=== PATIENT | male | born 1950 | race Asian ===

== ENCOUNTER → 2021-10-02 | Outpatient (CLI) | payer OTHER ==
[2021-10-02 08:15] LABS: BASOPHILS % (AUTO) 0.6 % (0.0-2.0); EOSINOPHILS % (AUTO) 4.2 % (1.0-6.0); HEMOGLOBIN 13.4 g/dL (13.5-17.5); LYMPHOCYTES # (AUTO) 1.4 K/uL (1.0-4.8); LYMPHOCYTES % (AUTO) 24.8 % (22.0-44.0); MEAN CORPUSCULAR HEMOGLOBIN 31.5 pg (26.0-34.0); MEAN CORPUSCULAR HGB CONC 34.3 G/dL (31.0-37.0); MEAN CORPUSCULAR VOLUME 92 fL (80-100); MONOCYTES # (AUTO) 0.5 K/uL (0.1-1.0); MONOCYTES % (AUTO) 8.8 % (2.0-9.0); NEUTROPHILS # (AUTO) 3.5 K/uL (1.8-7.7); NEUTROPHILS % (AUTO) 61.6 % (40.0-70.0); PLATELET COUNT (AUTO) 176 K/uL (150-450); RED BLOOD CELL COUNT(AUTO) 4.23 MIL/uL (4.50-5.90); RED CELL DISTRIBUTION WIDTH 13.8 % (11.5-14.5)
[2021-10-02 08:45] LABS: ALBUMIN 3.3 g/dL (3.4-5.0); BILIRUBIN,TOTAL 0.6 mg/dL (0.1-1.0); CALCIUM, TOTAL 9.6 mg/dL (8.8-10.5); CREATININE 1.47 mg/dL (0.60-1.30); FREE T4 (FREE THYROXINE) 1.31 ng/dL (0.76-1.46); MAGNESIUM 1.9 mg/dL (1.80-2.40); POTASSIUM 4.3 mmol/L (3.5-5.1); THYROID STIMULATING HORMONE 0.33 uIU/mL (0.36-3.74); TOTAL PROTEIN, SERUM 7.6 g/dL (6.4-8.2)
[2021-10-02 08:57] LABS: HEMOGLOBIN A1C 6.2 % (3.8-5.6)
== END | disposition home or self-care (01) ==
LOC: LABPV 07:27
PROVIDERS: ATTEND Internal Medicine
DX: D56.5 Hemoglobin E-beta thalassemia (principal); E11.8 Type 2 diabetes mellitus with unspecified complications; I11.0 Hypertensive heart disease with heart failure; I50.9 Heart failure, unspecified; E78.00 Pure hypercholesterolemia, unspecified
CPT/HCPCS: 80053; 80061; 82306; 83036; 83735; 83880; 84439; 84443; 84480; 85025

== ENCOUNTER → 2022-02-12 | Outpatient (CLI) | payer OTHER ==
[2022-02-12 08:09] LABS: BASOPHILS % (AUTO) 0.7 % (0.0-2.0); EOSINOPHILS % (AUTO) 5.2 % (1.0-6.0); HEMATOCRIT 37.2 % (41-53); HEMOGLOBIN 12.7 g/dL (13.5-17.5); LYMPHOCYTES % (AUTO) 28.3 % (22.0-44.0); MEAN CORPUSCULAR HEMOGLOBIN 31.5 pg (26.0-34.0); MEAN CORPUSCULAR HGB CONC 34.1 G/dL (31.0-37.0); MEAN CORPUSCULAR VOLUME 92 fL (80-100); MONOCYTES # (AUTO) 0.7 K/uL (0.1-1.0); MONOCYTES % (AUTO) 9.7 % (2.0-9.0); NEUTROPHILS # (AUTO) 3.9 K/uL (1.8-7.7); NEUTROPHILS % (AUTO) 56.1 % (40.0-70.0); PLATELET COUNT (AUTO) 184 K/uL (150-450); RED BLOOD CELL COUNT(AUTO) 4.03 MIL/uL (4.50-5.90); RED CELL DISTRIBUTION WIDTH 14.2 % (11.5-14.5)
[2022-02-12 08:16] LABS: APPEARANCE,URINE CLEAR (CLEAR); BILIRUBIN,URINE NEGATIVE (NEGATIVE); GLUCOSE, URINE (UA) NEGATIVE (NEGATIVE); KETONES,URINE NEGATIVE (NEGATIVE); LEUKOCYTE ESTERASE ,URINE NEGATIVE (NEGATIVE); NITRATE,URINE NEGATIVE (NEGATIVE); OCCULT BLOOD,URINE SMALL (NEGATIVE); PROTEIN,URINE 100-200,SEE CONFIRM mg/dL (NEGATIVE); SPECIFIC GRAVITIY, URINE 1.009 (1.003-1.030); UROBILINOGEN,URINE <=1.0 mg/dL (<=1.0)
[2022-02-12 08:31] LABS: ALBUMIN 3.5 g/dL (3.4-5.0); BILIRUBIN,TOTAL 0.7 mg/dL (0.1-1.0); CALCIUM, TOTAL 9.8 mg/dL (8.8-10.5); CHOL/HDL RATIO 2.5 (4.2-7.3); CREATININE 1.54 mg/dL (0.60-1.30); POTASSIUM 4.3 mmol/L (3.5-5.1); THYROID STIMULATING HORMONE 0.42 uIU/mL (0.36-3.74); TOTAL PROTEIN, SERUM 7.6 g/dL (6.4-8.2)
[2022-02-12 08:46] LABS: HEMOGLOBIN A1C 6.1 % (3.8-5.6)
[2022-02-12 08:55] LABS: SULFOSALICYLIC ACID,URINE 2+ (Negative)
[2022-02-12 08:56] LABS: BACTERIA,URINE None Seen /HPF (None Seen); SQUAMOUS EPITHELIAL CELL,UR Few /LPF (None Seen); WBC,URINE None Seen /HPF (0-5)
[2022-02-12 09:18] LABS: PROSTATE SPECIFIC ANTIGEN 17.55 ng/mL (0.00-4.00)
== END | disposition home or self-care (01) ==
LOC: MSR 07:14
PROVIDERS: ATTEND Internal Medicine
DX: J44.9 Chronic obstructive pulmonary disease, unspecified (principal); Q25.46 Tortuous aortic arch; R07.9 Chest pain, unspecified; R00.2 Palpitations; R97.20 Elevated prostate specific antigen [PSA]; Z79.899 Other long term (current) drug therapy
CPT/HCPCS: 71046; 80053; 80061; 81001; 81002; 82306; 83036; 83525; 84153; 84154; 84443; 85025; 36415-L1; 36415-TC

== ENCOUNTER → 2022-02-19 | Outpatient (CLI) | payer OTHER ==
[2022-02-19 07:32] LABS: BASOPHILS % (AUTO) 0.6 % (0.0-2.0); EOSINOPHILS % (AUTO) 4.4 % (1.0-6.0); HEMATOCRIT 35.6 % (41-53); HEMOGLOBIN 12.2 g/dL (13.5-17.5); LYMPHOCYTES # (AUTO) 1.7 K/uL (1.0-4.8); MEAN CORPUSCULAR HEMOGLOBIN 31.6 pg (26.0-34.0); MEAN CORPUSCULAR HGB CONC 34.3 G/dL (31.0-37.0); MEAN CORPUSCULAR VOLUME 92 fL (80-100); MONOCYTES # (AUTO) 0.6 K/uL (0.1-1.0); MONOCYTES % (AUTO) 9.7 % (2.0-9.0); NEUTROPHILS # (AUTO) 3.7 K/uL (1.8-7.7); NEUTROPHILS % (AUTO) 58.3 % (40.0-70.0); PLATELET COUNT (AUTO) 183 K/uL (150-450); RED BLOOD CELL COUNT(AUTO) 3.87 MIL/uL (4.50-5.90); RETICULOCYTE % (AUTO) 1.3 % (0.5-2.3)
[2022-02-19 08:11] LABS: % IRON SATURATION 34.4 % (30-44)
[2022-02-19 08:53] LABS: VITAMIN B12 LEVEL 832 pg/mL (211-911)
[2022-02-19 09:08] LABS: FOLATE SERUM > 24.0 ng/mL (5.4-)
== END | disposition home or self-care (01) ==
LOC: LABMN 07:05
PROVIDERS: ATTEND Internal Medicine
DX: D64.9 Anemia, unspecified (principal)
CPT/HCPCS: 82274; 82607; 82728; 82746; 83540; 83550; 85025; 85045

== ENCOUNTER → 2022-09-17 | Outpatient (CLI) | payer OTHER ==
[2022-09-17 07:39] LABS: BASOPHILS % (AUTO) 0.6 % (0.0-2.0); EOSINOPHILS % (AUTO) 3.2 % (1.0-6.0); HEMATOCRIT 37.9 % (41-53); HEMOGLOBIN 12.5 g/dL (13.5-17.5); LYMPHOCYTES # (AUTO) 1.5 K/uL (1.0-4.8); LYMPHOCYTES % (AUTO) 19.7 % (22.0-44.0); MEAN CORPUSCULAR HEMOGLOBIN 31.9 pg (26.0-34.0); MEAN CORPUSCULAR HGB CONC 33.1 G/dL (31.0-37.0); MEAN CORPUSCULAR VOLUME 96 fL (80-100); MONOCYTES # (AUTO) 0.7 K/uL (0.1-1.0); MONOCYTES % (AUTO) 9.2 % (2.0-9.0); NEUTROPHILS % (AUTO) 67.3 % (40.0-70.0); PLATELET COUNT (AUTO) 196 K/uL (150-450); RED BLOOD CELL COUNT(AUTO) 3.93 MIL/uL (4.50-5.90); RED CELL DISTRIBUTION WIDTH 14.8 % (11.5-14.5)
[2022-09-17 07:50] LABS: HEMOGLOBIN A1C 6.4 % (3.8-5.6)
[2022-09-17 07:56] LABS: ALBUMIN 2.8 g/dL (3.4-5.0); BILIRUBIN,TOTAL 0.5 mg/dL (0.1-1.0); CALCIUM, TOTAL 9.2 mg/dL (8.8-10.5); CHOL/HDL RATIO 3.4 (4.2-7.3); CREATININE 1.77 mg/dL (0.60-1.30); POTASSIUM 4.1 mmol/L (3.5-5.1); THYROID STIMULATING HORMONE 0.61 uIU/mL (0.36-3.74); TOTAL PROTEIN, SERUM 7.1 g/dL (6.4-8.2)
== END | disposition home or self-care (01) ==
LOC: LABMN 07:03
PROVIDERS: ATTEND Internal Medicine
DX: I10 Essential (primary) hypertension (principal); J44.9 Chronic obstructive pulmonary disease, unspecified; D64.9 Anemia, unspecified; E66.9 Obesity, unspecified; E55.9 Vitamin D deficiency, unspecified; Z79.899 Other long term (current) drug therapy
CPT/HCPCS: 80053; 80061; 82306; 83036; 84154; 84443; 85025

== ENCOUNTER → 2022-10-09 | Outpatient (CLI) | payer OTHER | END | disposition home or self-care (01) | LOC: RADMN 08:13 | PROVIDERS: ATTEND Internal Medicine | DX: I51.7 Cardiomegaly (principal); R06.02 Shortness of breath; Q25.46 Tortuous aortic arch; M47.814 Spondylosis without myelopathy or radiculopathy, thoracic region | CPT/HCPCS: 71046 ==

== ENCOUNTER → 2022-11-12 | Outpatient (CLI) | payer OTHER ==
[~2022-11-12] VITALS: Ht 167.6 cm; Wt 94.5 kg
[~2022-11-12] MED LIST: ATOR20TA86 PO; CHOL25TA4 PO; LOSA-382 PO; METO50 PO
[2022-11-12 09:35] VITALS: BP 115/80
== END | disposition home or self-care (01) ==
LOC: SRCNTR 08:58
PROVIDERS: ATTEND Internal Medicine Pulmonary Disease
DX: I10 Essential (primary) hypertension (principal); E66.9 Obesity, unspecified
CPT/HCPCS: G0463; Z7500

== ENCOUNTER 2022-12-09 16:08 | Emergency (ER) | payer OTHER ==
[~2022-12-09] VITALS: Ht 170.2 cm; Wt 95.5 kg
[2022-12-09] MEDS ORDERED: DOXY-354 PO (16:21)
[2022-12-09] MEDS ORDERED: CEPH-558 PO ×2 (16:21→23:19)
[2022-12-09] MEDS ORDERED: METO-391 PO (16:24)
[2022-12-09 20:19] LABS: BASOPHILS % (AUTO) 0.5 % (0.0-2.0); EOSINOPHILS % (AUTO) 3.4 % (1.0-6.0); HEMATOCRIT 34.7 % (41-53); HEMOGLOBIN 11.6 g/dL (13.5-17.5); LYMPHOCYTES # (AUTO) 1.6 K/uL (1.0-4.8); MEAN CORPUSCULAR HEMOGLOBIN 31.3 pg (26.0-34.0); MEAN CORPUSCULAR HGB CONC 33.6 G/dL (31.0-37.0); MEAN CORPUSCULAR VOLUME 93 fL (80-100); MONOCYTES # (AUTO) 0.8 K/uL (0.1-1.0); MONOCYTES % (AUTO) 12.2 % (2.0-9.0); NEUTROPHILS # (AUTO) 3.8 K/uL (1.8-7.7); NEUTROPHILS % (AUTO) 58.9 % (40.0-70.0); PLATELET COUNT (AUTO) 202 K/uL (150-450); RED BLOOD CELL COUNT(AUTO) 3.72 MIL/uL (4.50-5.90); RED CELL DISTRIBUTION WIDTH 14.1 % (11.5-14.5)
[2022-12-09 20:27] LABS: CALCIUM, TOTAL 9.6 mg/dL (8.8-10.5); CREATININE 2.18 mg/dL (0.60-1.30); POTASSIUM 4.6 mmol/L (3.5-5.1)
[2022-12-10 03:01] VITALS: BP 144/82
== END 2022-12-10 03:03 | disposition home or self-care (01) ==
LOC: EMS 16:09
DX: M79.89 Other specified soft tissue disorders (principal); L03.116 Cellulitis of left lower limb; J44.9 Chronic obstructive pulmonary disease, unspecified; I10 Essential (primary) hypertension; Z98.890 Other specified postprocedural states
CPT/HCPCS: 80048; 83880; 85025; 93971; 99285

== ENCOUNTER → 2022-12-17 | Outpatient (CLI) | payer OTHER ==
[~2022-12-17] MED LIST changes: +CEPH-558 PO; +DOXY-354 PO; +METO-391 PO; -METO50 PO
[2022-12-17 08:16] LABS: APPEARANCE,URINE CLEAR (CLEAR); BILIRUBIN,URINE NEGATIVE (NEGATIVE); GLUCOSE, URINE (UA) NEGATIVE (NEGATIVE); KETONES,URINE NEGATIVE (NEGATIVE); LEUKOCYTE ESTERASE ,URINE NEGATIVE (NEGATIVE); NITRATE,URINE NEGATIVE (NEGATIVE); OCCULT BLOOD,URINE MODERATE (NEGATIVE); PROTEIN,URINE 300-600,SEE CONFIRM mg/dL (NEGATIVE); UROBILINOGEN,URINE <=1.0 mg/dL (<=1.0)
[2022-12-17 08:18] LABS: CREATININE,URINE RANDOM 72.4 mg/dL (30.0-125.0); PROTEIN,URINE RANDOM 243 mg/dL (0-11.9)
[2022-12-17 08:41] LABS: CALCIUM, TOTAL 9.4 mg/dL (8.8-10.5); CHOL/HDL RATIO 2.4 (4.2-7.3); CREATININE 1.95 mg/dL (0.60-1.30)
[2022-12-17 09:03] LABS: PROSTATE SPECIFIC ANTIGEN 20.94 ng/mL (0.00-4.00)
[2022-12-17 09:04] LABS: SULFOSALICYLIC ACID,URINE 3+ (Negative)
[2022-12-17 09:05] LABS: BACTERIA,URINE None Seen /HPF (None Seen); WBC,URINE None Seen /HPF (0-5)
== END | disposition home or self-care (01) ==
LOC: LABMN 07:33
PROVIDERS: ATTEND Internal Medicine Nephrology
DX: C61 Malignant neoplasm of prostate (principal); E78.5 Hyperlipidemia, unspecified; R80.9 Proteinuria, unspecified; N18.30 Chronic kidney disease, stage 3 unspecified; E55.9 Vitamin D deficiency, unspecified
CPT/HCPCS: 80048; 80061; 81001; 81002; 82306; 82570; 84153; 84156

== ENCOUNTER 2023-01-20 07:24 | Emergency (ER) | payer OTHER ==
[~2023-01-20] VITALS: Ht 167.6 cm; Wt 90.9 kg
[~2023-01-20 07:24] MED LIST changes: -SULF-261 PO
[2023-01-20 07:26] VITALS: BP 129/72
[2023-01-20] MEDS ORDERED: SULFAMETHOX/TRIMETH DS 800-160 MG/TABLET PO ONE (08:30)
[2023-01-20] MEDS ORDERED: CEPHALEXIN MONOHYDRATE 500 MG CAPSULE PO ONE (08:30)
[2023-01-20] MEDS ORDERED: CEPH-558 PO (08:32)
[2023-01-20] MEDS ORDERED: SULF-261 PO (08:32)
== END 2023-01-20 08:41 | disposition home or self-care (01) ==
LOC: EMS 07:27
DX: L03.90 Cellulitis, unspecified (principal); I10 Essential (primary) hypertension; J44.9 Chronic obstructive pulmonary disease, unspecified
CPT/HCPCS: 99281; Z7502

== ENCOUNTER → 2023-01-20 | Outpatient (CLI) | payer OTHER ==
[~2023-01-20] MED LIST changes: +ATOR20TA PO; -ATOR20TA86 PO; +SULF-261 PO
[2023-01-20 07:24] LABS: EOSINOPHILS % (AUTO) 4.7 % (1.0-6.0); HEMATOCRIT 31.8 % (41-53); HEMOGLOBIN 10.6 g/dL (13.5-17.5); LYMPHOCYTES # (AUTO) 1.8 K/uL (1.0-4.8); LYMPHOCYTES % (AUTO) 32.6 % (22.0-44.0); MEAN CORPUSCULAR HEMOGLOBIN 30.4 pg (26.0-34.0); MEAN CORPUSCULAR HGB CONC 33.3 G/dL (31.0-37.0); MEAN CORPUSCULAR VOLUME 91 fL (80-100); MONOCYTES # (AUTO) 0.5 K/uL (0.1-1.0); MONOCYTES % (AUTO) 9.7 % (2.0-9.0); NEUTROPHILS # (AUTO) 2.9 K/uL (1.8-7.7); PLATELET COUNT (AUTO) 191 K/uL (150-450); RED BLOOD CELL COUNT(AUTO) 3.48 MIL/uL (4.50-5.90); RED CELL DISTRIBUTION WIDTH 14.7 % (11.5-14.5)
[2023-01-20 07:43] LABS: ALBUMIN 3.1 g/dL (3.4-5.0); BILIRUBIN,TOTAL 0.3 mg/dL (0.1-1.0); CALCIUM, TOTAL 8.9 mg/dL (8.8-10.5); CHOL/HDL RATIO 2.6 (4.2-7.3); CREATININE 1.96 mg/dL (0.60-1.30); HEMOGLOBIN A1C 6.4 % (3.8-5.6); POTASSIUM 4.3 mmol/L (3.5-5.1); THYROID STIMULATING HORMONE 0.52 uIU/mL (0.36-3.74); TOTAL PROTEIN, SERUM 7.3 g/dL (6.4-8.2)
[2023-01-20 09:43] LABS: VITAMIN D,TOTAL (25-0H) 26 ng/mL (30-100)
[2023-01-20 09:48] LABS: FOLATE SERUM 18.7 ng/mL (5.4-); VITAMIN B12 LEVEL > 2000 pg/mL (211-911)
== END | disposition home or self-care (01) ==
LOC: LABMN 06:48
PROVIDERS: ATTEND Internal Medicine Geriatric Medicine
DX: Z00.00 Encounter for general adult medical examination without abnormal findings (principal)
CPT/HCPCS: 80053; 80061; 82043; 82306; 82570; 82607; 82746; 83036; 84443; 85025

== ENCOUNTER → 2023-03-26 | Outpatient (CLI) | payer OTHER ==
[~2023-03-26] MED LIST changes: -DOXY-354 PO; +SULF-261 PO
[2023-03-26 10:21] LABS: CALCIUM, TOTAL 8.9 mg/dL (8.8-10.5); CREATININE 2.07 mg/dL (0.60-1.30); POTASSIUM 4.1 mmol/L (3.5-5.1)
[2023-03-26 10:35] LABS: CREATININE,URINE 34.1 mg/dL (30.0-125.0)
[2023-03-26 10:37] LABS: CREATININE,SERUM FOR CRCL 2.07 mg/dL (0.60-1.30)
[2023-03-27 07:07] LABS: IGM (IMMUNOFIXATION) 51 mg/dL (20-172)
[2023-03-30 18:11] LABS: GLOMERULAR BASE MEMBRANE ABS <0.2 units (0.0-0.9)
[2023-03-31 05:17] LABS: ALPHA-1 URINE 3.7 %; ALPHA-2 URINE 3.1 %
== END | disposition home or self-care (01) ==
LOC: LABMN 08:42
PROVIDERS: ATTEND Internal Medicine Nephrology
DX: N18.30 Chronic kidney disease, stage 3 unspecified (principal); R80.9 Proteinuria, unspecified
CPT/HCPCS: 80048; 81050; 82575; 82784; 83520; 84156; 84166; 84300; 86038; 86160; 86256; 86334; 86335

== ENCOUNTER → 2023-06-05 | Outpatient (CLI) | payer OTHER ==
[2023-06-05 08:08] LABS: BASOPHILS % (AUTO) 0.7 % (0.0-2.0); EOSINOPHILS % (AUTO) 4.1 % (1.0-6.0); HEMATOCRIT 32.1 % (41-53); HEMOGLOBIN 10.8 g/dL (13.5-17.5); LYMPHOCYTES # (AUTO) 1.3 K/uL (1.0-4.8); LYMPHOCYTES % (AUTO) 25.1 % (22.0-44.0); MEAN CORPUSCULAR HEMOGLOBIN 31.7 pg (26.0-34.0); MEAN CORPUSCULAR HGB CONC 33.6 G/dL (31.0-37.0); MEAN CORPUSCULAR VOLUME 94 fL (80-100); MONOCYTES # (AUTO) 0.4 K/uL (0.1-1.0); MONOCYTES % (AUTO) 8.2 % (2.0-9.0); NEUTROPHILS # (AUTO) 3.3 K/uL (1.8-7.7); NEUTROPHILS % (AUTO) 61.9 % (40.0-70.0); PLATELET COUNT (AUTO) 149 K/uL (150-450); RED BLOOD CELL COUNT(AUTO) 3.41 MIL/uL (4.50-5.90); RED CELL DISTRIBUTION WIDTH 14.2 % (11.5-14.5); WHITE BLOOD COUNT (AUTO) 5.3 K/uL (4.5-11.0)
[2023-06-05 08:13] LABS: HEMOGLOBIN A1C 5.7 % (3.8-5.6)
[2023-06-05 08:38] LABS: ALBUMIN 3.4 g/dL (3.4-5.0); BILIRUBIN,TOTAL 0.5 mg/dL (0.1-1.0); CALCIUM, TOTAL 9.2 mg/dL (8.8-10.5); CREATININE 1.9 mg/dL (0.60-1.30); FREE THYROXINE INDEX 3.2 (1.4-4.5); PHOSPHORUS 4.6 mg/dL (2.5-4.9); POTASSIUM 4.4 mmol/L (3.5-5.1); T4 (THYROXINE) 9.5 mcg/dL (4.7-13.3); THYROID STIMULATING HORMONE 0.65 uIU/mL (0.36-3.74); TOTAL PROTEIN, SERUM 7.2 g/dL (6.4-8.2)
[2023-06-06 06:06] LABS: PARATHYROID HORMONE INTACT 44 pg/mL (15-65)
== END | disposition home or self-care (01) ==
LOC: LABMN 07:00
PROVIDERS: ATTEND Internal Medicine Geriatric Medicine
DX: I11.0 Hypertensive heart disease with heart failure (principal); I50.9 Heart failure, unspecified; E11.8 Type 2 diabetes mellitus with unspecified complications; E78.00 Pure hypercholesterolemia, unspecified; E55.9 Vitamin D deficiency, unspecified; D56.5 Hemoglobin E-beta thalassemia
CPT/HCPCS: 80053; 80061; 82306; 82570; 83036; 83970; 84100; 84436; 84443; 84479; 85025

== ENCOUNTER → 2023-08-04 | Outpatient (CLI) | payer OTHER ==
[2023-08-04 07:53] LABS: APPEARANCE,URINE CLEAR (CLEAR); BILIRUBIN,URINE NEGATIVE (NEGATIVE); COLOR,URINE COLORLESS (YELLOW); GLUCOSE, URINE (UA) NEGATIVE (NEGATIVE); KETONES,URINE NEGATIVE (NEGATIVE); LEUKOCYTE ESTERASE ,URINE NEGATIVE (NEGATIVE); NITRATE,URINE NEGATIVE (NEGATIVE); OCCULT BLOOD,URINE SMALL (NEGATIVE); PROTEIN,URINE 100-200,SEE CONFIRM mg/dL (NEGATIVE); UROBILINOGEN,URINE <=1.0 mg/dL (<=1.0)
[2023-08-04 08:09] LABS: SULFOSALICYLIC ACID,URINE 2+ (Negative)
[2023-08-04 08:10] LABS: BACTERIA,URINE None Seen /HPF (None Seen); RBC,URINE 0-2 /HPF (0-2); WBC,URINE 0-2 /HPF (0-5)
== END | disposition home or self-care (01) ==
LOC: LABMN 07:14
PROVIDERS: ATTEND Urology
DX: R97.20 Elevated prostate specific antigen [PSA] (principal); R31.21 Asymptomatic microscopic hematuria
CPT/HCPCS: 81001; 81002; 84153

== ENCOUNTER → 2023-09-18 | Outpatient (CLI) | payer OTHER ==
[2023-09-18 07:54] LABS: APPEARANCE,URINE CLEAR (CLEAR); BILIRUBIN,URINE NEGATIVE (NEGATIVE); COLOR,URINE COLORLESS (YELLOW); GLUCOSE, URINE (UA) NEGATIVE (NEGATIVE); KETONES,URINE NEGATIVE (NEGATIVE); LEUKOCYTE ESTERASE ,URINE NEGATIVE (NEGATIVE); NITRATE,URINE NEGATIVE (NEGATIVE); OCCULT BLOOD,URINE MODERATE (NEGATIVE); PROTEIN,URINE 100-200,SEE CONFIRM mg/dL (NEGATIVE); SPECIFIC GRAVITIY, URINE 1.011 (1.003-1.030); UROBILINOGEN,URINE <=1.0 mg/dL (<=1.0)
[2023-09-18 08:16] LABS: BACTERIA,URINE None Seen /HPF (None Seen); RBC,URINE 0-2 /HPF (0-2); SQUAMOUS EPITHELIAL CELL,UR Few /LPF (None Seen); SULFOSALICYLIC ACID,URINE 1+ (Negative); WBC,URINE None Seen /HPF (0-5)
== END | disposition home or self-care (01) ==
LOC: LABMN 07:10
PROVIDERS: ATTEND Urology
DX: R97.20 Elevated prostate specific antigen [PSA] (principal); R31.21 Asymptomatic microscopic hematuria
CPT/HCPCS: 81001; 81002; 84153

== ENCOUNTER → 2023-12-16 | Outpatient (CLI) | payer OTHER ==
[2023-12-17 03:06] LABS: MUMPS VIRUS IGG ANTIBODY 15.1 AU/mL (Immune >10.9); RUBELLA AB IGG-REFLAB >33.00 index (Immune >0.99)
[2023-12-17 07:07] LABS: RUBEOLA (MEASLES) IGG >300.0 AU/mL (Immune >16.4); VARICELLA ZOSTER IGG AB TITER 1526 index (Immune >165)
== END | disposition home or self-care (01) ==
LOC: LABMN 10:19
PROVIDERS: ATTEND Internal Medicine
DX: Z02.1 Encounter for pre-employment examination (principal)
CPT/HCPCS: 86706; 86735; 86762; 86765; 86787

== ENCOUNTER 2023-12-18 10:40 | Emergency (ER) | payer OTHER ==
[~2023-12-18] VITALS: Ht 162.6 cm; Wt 75.0 kg
[2023-12-18 10:48] VITALS: TEMP 98
[2023-12-18] MEDS ORDERED: LOSA-381 PO (10:54)
[2023-12-18] MEDS ORDERED: CHOL200074 PO (10:54)
[2023-12-18] MEDS ORDERED: METO-416 PO (10:54)
[2023-12-18] MEDS ORDERED: ATOR20TA65 PO (10:54)
[2023-12-18 12:27] LABS: BASOPHILS % (AUTO) 0.7 % (0.0-2.0); HEMATOCRIT 32.9 % (41-53); HEMOGLOBIN 11.1 g/dL (13.5-17.5); LYMPHOCYTES # (AUTO) 2.6 K/uL (1.0-4.8); LYMPHOCYTES % (AUTO) 26.8 % (22.0-44.0); MEAN CORPUSCULAR HEMOGLOBIN 32.8 pg (26.0-34.0); MEAN CORPUSCULAR HGB CONC 33.9 G/dL (31.0-37.0); MEAN CORPUSCULAR VOLUME 97 fL (80-100); MONOCYTES # (AUTO) 0.9 K/uL (0.1-1.0); MONOCYTES % (AUTO) 8.8 % (2.0-9.0); NEUTROPHILS # (AUTO) 5.5 K/uL (1.8-7.7); NEUTROPHILS % (AUTO) 56.7 % (40.0-70.0); PLATELET COUNT (AUTO) 172 K/uL (150-450); RED BLOOD CELL COUNT(AUTO) 3.39 MIL/uL (4.50-5.90); RED CELL DISTRIBUTION WIDTH 15.1 % (11.5-14.5); WHITE BLOOD COUNT (AUTO) 9.7 K/uL (4.5-11.0)
[2023-12-18 12:33] LABS: CALCIUM, TOTAL 9.4 mg/dL (8.8-10.5); CREATININE 2.42 mg/dL (0.60-1.30); POTASSIUM 4.7 mmol/L (3.5-5.1)
[2023-12-18 12:38] LABS: ALBUMIN 2.6 g/dL (3.4-5.0); BILIRUBIN,TOTAL 0.3 mg/dL (0.1-1.0); MAGNESIUM 2.1 mg/dL (1.80-2.40); PHOSPHORUS 4.7 mg/dL (2.5-4.9); TOTAL PROTEIN, SERUM 6.7 g/dL (6.4-8.2)
[2023-12-18 12:41] LABS: TROPONIN I-HIGH SENSITIVITY 39 ng/L (<76)
[2023-12-18 13:45] VITALS: BP 146/98; PULSE 48; RESP 18
== END 2023-12-18 13:51 | disposition home or self-care (01) ==
LOC: EMS 10:55
DX: R00.1 Bradycardia, unspecified (principal); I10 Essential (primary) hypertension; J44.9 Chronic obstructive pulmonary disease, unspecified; Z98.890 Other specified postprocedural states
CPT/HCPCS: 80053; 83735; 83880; 84100; 84484; 85025; 93005; 99284

== ENCOUNTER → 2024-02-10 | Outpatient (CLI) | payer OTHER ==
[~2024-02-10] MED LIST changes: -ATOR20TA PO; +ATOR20TA65 PO; -CEPH-558 PO; +CHOL200074 PO; -CHOL25TA4 PO; +LOSA-381 PO; -LOSA-382 PO; -METO-391 PO; +METO-416 PO; -SULF-261 PO
[2024-02-10 07:39] LABS: BASOPHILS % (AUTO) 0.7 % (0.0-2.0); EOSINOPHILS % (AUTO) 4.1 % (1.0-6.0); HEMATOCRIT 32.7 % (41-53); HEMOGLOBIN 10.9 g/dL (13.5-17.5); LYMPHOCYTES % (AUTO) 25.8 % (22.0-44.0); MEAN CORPUSCULAR HEMOGLOBIN 32.9 pg (26.0-34.0); MEAN CORPUSCULAR HGB CONC 33.2 G/dL (31.0-37.0); MEAN CORPUSCULAR VOLUME 99 fL (80-100); MONOCYTES # (AUTO) 0.7 K/uL (0.1-1.0); MONOCYTES % (AUTO) 9.3 % (2.0-9.0); NEUTROPHILS # (AUTO) 4.7 K/uL (1.8-7.7); NEUTROPHILS % (AUTO) 60.1 % (40.0-70.0); PLATELET COUNT (AUTO) 189 K/uL (150-450); RED BLOOD CELL COUNT(AUTO) 3.31 MIL/uL (4.50-5.90); RED CELL DISTRIBUTION WIDTH 14.6 % (11.5-14.5); WHITE BLOOD COUNT (AUTO) 7.8 K/uL (4.5-11.0)
[2024-02-10 08:09] LABS: HEMOGLOBIN A1C 6.1 % (3.8-5.6)
[2024-02-10 08:12] LABS: BILIRUBIN,TOTAL 0.6 mg/dL (0.1-1.0); CALCIUM, TOTAL 9.3 mg/dL (8.8-10.5); CHOL/HDL RATIO 2.4 (4.2-7.3); CREATININE 3.02 mg/dL (0.60-1.30); POTASSIUM 4.4 mmol/L (3.5-5.1); THYROID STIMULATING HORMONE 0.7 uIU/mL (0.36-3.74); TOTAL PROTEIN, SERUM 6.9 g/dL (6.4-8.2)
[2024-02-10 08:56] LABS: PROSTATE SPECIFIC ANTIGEN 20.44 ng/mL (0.00-4.00)
[2024-02-10 11:46] LABS: VITAMIN B12 LEVEL 685 pg/mL (211-911); VITAMIN D,TOTAL (25-0H) 29 ng/mL (30-100)
[2024-02-10 13:40] LABS: FOLATE SERUM > 24.0 ng/mL (5.4-)
[2024-02-11 12:07] LABS: CREATININE, URINE (mALB) 42.1 mg/dL (Not Estab.)
== END | disposition home or self-care (01) ==
LOC: LABMN 07:17
PROVIDERS: ATTEND Internal Medicine Geriatric Medicine
DX: E11.59 Type 2 diabetes mellitus with other circulatory complications (principal); I12.9 Hypertensive chronic kidney disease with stage 1 through stage 4 chronic kidney disease, or unspecified chronic kidney disease; E78.5 Hyperlipidemia, unspecified; R80.9 Proteinuria, unspecified; N40.0 Benign prostatic hyperplasia without lower urinary tract symptoms
CPT/HCPCS: 80053; 80061; 82043; 82306; 82570; 82607; 82746; 83036; 84153; 84443; 85025

== ENCOUNTER → 2024-02-29 | Outpatient (CLI) | payer OTHER | END | disposition home or self-care (01) | LOC: RADPV 07:27 | PROVIDERS: ATTEND Internal Medicine Nephrology | DX: N28.1 Cyst of kidney, acquired (principal); N18.4 Chronic kidney disease, stage 4 (severe); N32.89 Other specified disorders of bladder | CPT/HCPCS: 76770 ==

== ENCOUNTER → 2025-04-07 | Outpatient (CLI) | payer OTHER ==
[~2025-04-07] MED LIST changes: +APIX2.5T PO; +METO25XL PO
== END | disposition home or self-care (01) ==
LOC: RADPV 14:12
PROVIDERS: ATTEND Internal Medicine Nephrology
DX: N28.1 Cyst of kidney, acquired (principal); N18.5 Chronic kidney disease, stage 5
CPT/HCPCS: 76770

== ENCOUNTER 2025-04-08 09:29 | Inpatient (IN) | payer OTHER ==
[~2025-04-08] VITALS: Ht 167.6 cm; Wt 71.2 kg
[~2025-04-08 09:29] MED LIST changes: -APIX2.5T PO; -METO25XL PO
[2025-04-08] MEDS ORDERED: TROPICAMIDE 0.5% OD ONE (10:00)
[2025-04-08 10:22] LABS: PLATELET COUNT (AUTO) 177 K/uL (150-450); RED BLOOD CELL COUNT(AUTO) 2.42 MIL/uL (4.50-5.90); RED CELL DISTRIBUTION WIDTH 14.9 % (11.5-14.5); WHITE BLOOD COUNT (AUTO) 5.9 K/uL (4.5-11.0)
[2025-04-08] MEDS ORDERED: IOHEXOL 350 MG/ML 100 ML VIAL ONE (10:25)
[2025-04-08] MEDS: TROPICAMIDE 1% 2 ML OPHTHALMIC SOLUTION OD ONE (10:35)
[2025-04-08 10:51] LABS: CALCIUM, TOTAL 8.6 mg/dL (8.8-10.5); CREATININE 5.91 mg/dL (0.60-1.30); GLOMERULAR FILTR. RATE CALC 9.0 mL/min (>60); GLUCOSE,RANDOM 96.0 mg/dL (70-110); SODIUM SERUM 142.0 mmol/L (136-145); UREA NITROGEN, BLOOD 83.0 mg/dL (7-18)
[2025-04-08] MEDS: METOPROLOL TARTRATE 5 MG/5 ML VIAL IVP ONE (11:16)
[2025-04-08] MEDS: CLOPIDOGREL BISULFATE 300 MG TABLET PO ONE (11:41)
[2025-04-08] MEDS: ASPIRIN 81 MG CHEWABLE TABLET PO ONE (11:41)
[2025-04-08 11:48] LABS: APPEARANCE,URINE CLEAR (CLEAR); GLUCOSE, URINE (UA) NEGATIVE (NEGATIVE); LEUKOCYTE ESTERASE ,URINE NEGATIVE (NEGATIVE); NITRATE,URINE NEGATIVE (NEGATIVE); OCCULT BLOOD,URINE SMALL (NEGATIVE); SPECIFIC GRAVITIY, URINE 1.009 (1.003-1.030)
[2025-04-08 18:00] VITALS: BP 145/97; PULSE 102; RESP 18; TEMP 98.1; O2SAT 96
[2025-04-08 20:00] VITALS: BP 122/89; PULSE 106; RESP 18; TEMP 97.8; O2SAT 100
[2025-04-09] VITALS: BP 112/94; PULSE 112; RESP 18; TEMP 98.2; O2SAT 98
[2025-04-09 04:00] VITALS: BP 125/86; PULSE 84; RESP 18; TEMP 98.4; O2SAT 100
[2025-04-09 06:45] LABS: PLATELET COUNT (AUTO) 168 K/uL (150-450); RED BLOOD CELL COUNT(AUTO) 2.25 MIL/uL (4.50-5.90); RED CELL DISTRIBUTION WIDTH 15.2 % (11.5-14.5); WHITE BLOOD COUNT (AUTO) 5.7 K/uL (4.5-11.0)
[2025-04-09 06:50] LABS: CALCIUM, TOTAL 8.4 mg/dL (8.8-10.5); CREATININE 5.57 mg/dL (0.60-1.30); GLOMERULAR FILTR. RATE CALC 10.0 mL/min (>60); GLUCOSE,RANDOM 90.0 mg/dL (70-110); SODIUM SERUM 141.0 mmol/L (136-145); UREA NITROGEN, BLOOD 85.0 mg/dL (7-18)
[2025-04-09 09:27] VITALS: BP 123/63; PULSE 54; RESP 20; TEMP 97.7; O2SAT 100
[2025-04-09 11:37] VITALS: BP 120/65; PULSE 53; RESP 19; TEMP 97.5; O2SAT 100
[2025-04-09] MEDS: METOPROLOL SUCCINATE 25 MG ER TABLET PO SCH (11:46)
[2025-04-09] MEDS: IRON SUCROSE COMPLEX 100 MG in SODIUM CHLORIDE 0.9% 100 ML IV SCH (16:57)
[2025-04-09] MEDS: SODIUM BICARBONATE 650 MG TABLET PO SCH (16:58)
[2025-04-09 18:20] VITALS: BP 138/76; PULSE 54; RESP 18; TEMP 97.5; O2SAT 100
[2025-04-09 20:45] VITALS: BP 142/89; PULSE 59; RESP 18; TEMP 97.5; O2SAT 98
[2025-04-09] MEDS ORDERED: APIXABAN 5 MG TABLET PO SCH (21:00)
[2025-04-09] MEDS: APIXABAN 2.5 MG TABLET PO SCH (21:50)
[2025-04-10] VITALS (7 sets, daily range): BP systolic 134–156; BP diastolic 76–90; PULSE 51–57; RESP 18–19; TEMP 97.5–98.5; O2SAT 97–100
[2025-04-10 07:08] LABS: CALCIUM, TOTAL 7.8 mg/dL (8.8-10.5); CREATININE 5.12 mg/dL (0.60-1.30); GLOMERULAR FILTR. RATE CALC 11.0 mL/min (>60); GLUCOSE,RANDOM 86.0 mg/dL (70-110); SODIUM SERUM 141.0 mmol/L (136-145); UREA NITROGEN, BLOOD 79.0 mg/dL (7-18)
[2025-04-10] MEDS: EPOETIN ALFA 10,000 UNITS/ML VIAL SQ SCH (08:25)
[2025-04-10] MEDS: ATORVASTATIN CALCIUM 20 MG TABLET PO SCH (08:26)
[2025-04-10 08:29] LABS: PLATELET COUNT (AUTO) 178 K/uL (150-450); RED BLOOD CELL COUNT(AUTO) 2.34 MIL/uL (4.50-5.90); RED CELL DISTRIBUTION WIDTH 15.2 % (11.5-14.5); WHITE BLOOD COUNT (AUTO) 5.0 K/uL (4.5-11.0)
[2025-04-11 00:34] VITALS: BP 140/79; PULSE 51; RESP 20; TEMP 97.7; O2SAT 95
[2025-04-11 04:00] VITALS: BP 135/89; PULSE 55; RESP 18; TEMP 97.5; O2SAT 98
[2025-04-11 07:14] VITALS: BP 151/85; PULSE 56; RESP 18; TEMP 97.5; O2SAT 96
[2025-04-11 09:24] LABS: PLATELET COUNT (AUTO) 180 K/uL (150-450); RED BLOOD CELL COUNT(AUTO) 2.41 MIL/uL (4.50-5.90); RED CELL DISTRIBUTION WIDTH 14.6 % (11.5-14.5); WHITE BLOOD COUNT (AUTO) 4.4 K/uL (4.5-11.0)
[2025-04-11 12:30] VITALS: BP 142/80; PULSE 58; RESP 18; TEMP 98; O2SAT 97
[2025-04-11] MEDS ORDERED: APIX2.5T PO (14:30)
[2025-04-11] MEDS ORDERED: METO25XL PO (14:31)
[2025-04-11 15:57] VITALS: BP 130/84; PULSE 59; RESP 18; TEMP 98; O2SAT 98
== END 2025-04-11 16:30 | disposition home or self-care (01) | DRG 124 ==
LOC: EMS 09:29 → EDH 14:37 → 5N 18:17
PROVIDERS: ADMIT Hospitalist; ATTEND Hospitalist
DX: H54.61 Unqualified visual loss, right eye, normal vision left eye (principal); N18.6 End stage renal disease; E87.20 Acidosis, unspecified; I47.20 Ventricular tachycardia, unspecified; I12.0 Hypertensive chronic kidney disease with stage 5 chronic kidney disease or end stage renal disease; R64 Cachexia; D84.9 Immunodeficiency, unspecified; E46 Unspecified protein-calorie malnutrition; I48.91 Unspecified atrial fibrillation; D63.1 Anemia in chronic kidney disease; R62.7 Adult failure to thrive; E78.00 Pure hypercholesterolemia, unspecified; E83.51 Hypocalcemia; J44.9 Chronic obstructive pulmonary disease, unspecified; E88.09 Other disorders of plasma-protein metabolism, not elsewhere classified; Z68.25 Body mass index [BMI] 25.0-25.9, adult; Z86.73 Personal history of transient ischemic attack (TIA), and cerebral infarction without residual deficits; Z79.899 Other long term (current) drug therapy
CPT/HCPCS: 70450; 70544; 70551; 71045; 80048; 81001; 83735; 85025; 85610; 87086; 93005; 93306; 93880; 97110; 97163; 97165; 97535; 99285; J0885; J1756; J3490; J7050; 36415-L1; 36415-TC

== ENCOUNTER → 2025-07-06 | Outpatient (CLI) | payer OTHER ==
[~2025-07-06] MED LIST changes: +APIX2.5T PO; -LOSA-381 PO; -METO-416 PO; +METO25XL PO
[2025-07-06 08:39] LABS: PLATELET COUNT (AUTO) 166 K/uL (150-450); RED BLOOD CELL COUNT(AUTO) 2.48 MIL/uL (4.50-5.90); RED CELL DISTRIBUTION WIDTH 15.4 % (11.5-14.5); WHITE BLOOD COUNT (AUTO) 4.5 K/uL (4.5-11.0)
[2025-07-06 08:49] LABS: CALCIUM, TOTAL 8.2 mg/dL (8.8-10.5); CREATININE 6.28 mg/dL (0.60-1.30); GLOMERULAR FILTR. RATE CALC 9.0 mL/min (>60); GLUCOSE,RANDOM 99.0 mg/dL (70-110); SODIUM SERUM 140.0 mmol/L (136-145); UREA NITROGEN, BLOOD 91.0 mg/dL (7-18)
[2025-07-06 08:54] LABS: PHOSPHORUS 6.9 mg/dL (2.5-4.9)
== END | disposition home or self-care (01) ==
LOC: LABMN 08:09
PROVIDERS: ATTEND Internal Medicine Nephrology
DX: N18.5 Chronic kidney disease, stage 5 (principal); D64.9 Anemia, unspecified
CPT/HCPCS: 80048; 83735; 84100; 85025